=== PATIENT | male | born 1985 | race Hispanic/Latino ===

== ENCOUNTER 2022-10-14 17:52 | Emergency (ER) | payer SELFPAY ==
--- NOTE | 2022-10-14 18:25 | RAD REPORT ---
EXAM DESCRIPTION: RAD - Foot Left 3 View - 10/14/2022 6:19 pm CLINICAL HISTORY: lawnmower vs great toe, who will win? COMPARISON: No comparisons TECHNIQUE: Left foot, 3 views. FINDINGS: No fracture, dislocation or periosteal reaction. No air or foreign body in the soft tissues. Soft tissue swelling and irregularity at the tip of the f irst digit. IMPRESSION: Soft tissue swelling and irregularity of the tip of the first digit. No acute osseous ab normality.
--- NOTE | 2022-10-14 19:27 | ER ---
Nurse's Notes [facility] Name: Trevor Carpenter Age: 37 yrs Sex: Male : 1985 Arrival Date: 10/14/2022 Time: 17:52 Bed 20 Private MD: Diagnosis: Amputation Presentation: 10/14 17:55 Chief complaint: EMS states: patient was using the lawnmower, tripped and the lawnmower ko1 cut the tip ot the left big toe off. Coronavirus screen: At this time, the client does not indicate any symptoms associated with coronavirus-19. Ebola Screen: No symptoms or risks identified at this time. Initial Sepsis Screen: Does the patient meet any 2 criteria? No. Patient's initial sepsis screen is negative. Does the patient have a suspected source of infection? No. Patient's initial sepsis screen is negative. Risk Assessment: Do you want to hurt yourself or someone else? Patient reports no desire to harm self or others. Onset of symptoms was October 14, 2022 at 17:30. Care prior to arrival: Bleeding of injury controlled. Injury dressed. IV initiated. 20 GA, in the left forearm, Glucose check: 138. 17:55 Method Of Arrival: EMS: [facility] ko1 17:55 Acuity: JANET 2 ko1 Triage Assessment: 18:04 General: Appears in no apparent distress. uncomfortable, Behavior is cooperative, ko1 appropriate for age. Pain: Complains of pain in plantar aspect of left first toe and medial aspect of left toes. Historical: - Allergies: 18:04 Unable to obtain; ko1 - Home Meds: 18:04 None [Active]; ko1 - Immunization history:: Adult Immunizations unknown, Last tetanus immunization: 2018. - Social history:: Smoking status: Patient denies any tobacco usage or history of. Screenin:07 [facility] ED Fall Risk Assessment (Adult) History of falling in the last 3 months, ko1 including since admission No falls in past 3 months (0 pts) Confusion or Disorientation No (0 pts) Intoxicated or Sedated No (0 pts) Impaired Gait No (0 pts) Mobility Assist Device Used No (0 pt) Altered Elimination No (0 pt) Score/Fall Risk Level 0 - 2 = Low Risk Oriented to surroundings, Maintained a safe environment, Educated pt \T\ family on fall prevention, incl call for assistance when getting out of bed, Assessed \T\ reinforced patient's understanding of fall precautions, Provided non-skid footwear, Hourly rounding (assess needs \T\ fall precautionary measures) done, Used ambulatory aids as needed (educated on \T\ assisted with), Used gait belt as appropriate. Abuse screen: Denies threats or abuse. Denies injuries from another. Nutritional screening: No deficits noted. Tuberculosis screening: No symptoms or risk factors identified. Assessment: 18:07 General: Appears in no apparent distress. uncomfortable, Behavior is cooperative, ko1 appropriate for age. Pain: Complains of pain in left foot and medial aspect of left toes and plantar aspect of left first toe. Neuro: No deficits noted. Cardiovascular: No deficits noted. Respiratory: No deficits noted. GI: No deficits noted. : No deficits noted. EENT: No deficits noted. Derm: No deficits noted. Musculoskeletal: Amputation of. Injury Description: Amputation sustained to distal end of left great toe. 18:53 Reassessment: dressing placed on left great toe. ko1 19:10 General: Appears comfortable, Behavior is cooperative, anxious. Pain: Complains of pain ha1 in left foot. Neuro: Level of Consciousness is awake, alert, obeys commands, Oriented to person, place, time, situation. Cardiovascular: Patient's skin is warm and dry. Respiratory: Airway is patent Respiratory effort is even, unlabored, Respiratory pattern is regular, symmetrical. Injury Description: Amputation sustained to plantar aspect of left first toe is partial. 19:30 Reassessment: screaming on the hallway insulting care provider. Gallardo code was called. ha1 security arrived. Vital Signs: 18:00 BP 153 / 92; Pulse 85; Resp 18; Temp 98; Pulse Ox 98% on R/A; ko1 19:40 BP 145 / 90; Pulse 85; Resp 18 S; Pulse Ox 98% on R/A; ha1 ED Course: 17:55 Patient arrived in ED. ko1 17:57 Jose A Moffett PA is PHCP. [facility] 17:57 Ángel Whipple MD is Attending Physician. [facility] 17:58 Juliane Garduno, SHERIN is Primary Nurse. ko1 18:04 Triage completed. ko1 18:04 Arm band placed on right wrist. Patient placed in an exam room, on a stretcher, on ko1 surveillance monitor, on pulse oximetry, Patient notified of wait time. 18:07 Patient has correct armband on for positive identification. Bed in low position. Call ko1 light in reach. Side rails up X 1. Pulse ox on. NIBP on. Door closed. Noise minimized. Lights dimmed. 18:07 when patient moved to stretcher from EMS stretcher. ko1 18:21 Foot Left 3 View XRAY In Process Unspecified. EDMS 18:53 No provider procedures requiring assistance completed. ko1 19:26 oTny Simpson MD is Referral Physician. [facility] Administered Medications: 18:27 Not Given (patient says he had one <5yrs agoo): Tetanus-Diphtheria Toxoid IM Adult 0.5 ko1 ml IM once; Provide Vaccine Information Statement (VIS). Medication: 19:41 VIS not applicable for this client. ha1 Outcome: 19:27 Discharge ordered by MD. [facility] 19:41 Discharged to home ambulatory. ha1 19:41 Condition: stable 19:41 Discharge instructions given to patient, Instructed on discharge instructions, follow up and referral plans. medication usage, Demonstrated understanding of instructions, follow-up care, medications, wound care, Prescriptions given X 2. 19:41 Patient left the ED. ha1 Signatures: Dispatcher [employer] EDMS Jose A Moffett PA PA jmm Ayala, Heidy, RN RN ha1 Juliane Garduno, RN RN ko1
--- NOTE | 2022-10-14 19:27 | EDPHYS ---
Physician Documentation [facility] Name: Trevor Carpenter Age: 37 yrs Sex: Male : 1985 Arrival Date: 10/14/2022 Time: 17:52 Bed 20 Private MD: ED Physician Ángel Whipple HPI: 10/14 17:57 This 37 yrs old Male presents to ER via EMS with complaints of Foot pain. [facility] 17:57 Onset: The symptoms/episode began/occurred acutely, just prior to arrival. Is a jmm 37-year-old male with a history of chronic back pain the presents emerged department with complaints of left great toe pain which occurred after a lawn more ran over his toe. Denies other injury.. Historical: - Allergies: 18:04 Unable to obtain; ko1 - Home Meds: 18:04 None [Active]; ko1 - Immunization history:: Adult Immunizations unknown, Last tetanus immunization: 2018. - Social history:: Smoking status: Patient denies any tobacco usage or history of. ROS: 17:57 Constitutional: Negative for fever, chills, and weight loss, Cardiovascular: Negative jmm for chest pain, palpitations, and edema, Respiratory: Negative for shortness of breath, cough, wheezing, and pleuritic chest pain. 17:57 MS/extremity: Positive for injury or acute deformity. 17:57 All other systems are negative. Exam: 17:57 Constitutional: This is a well developed, well nourished patient who is awake, alert, jmm and in no acute distress. Head/Face: atraumatic. Eyes: EOMI, no conjunctival erythema appreciated ENT: Moist Mucus Membranes Neck: Trachea midline, Supple Chest/axilla: Normal chest wall appearance and motion. Cardiovascular: Regular rate and rhythm. No edema appreciated Respiratory: Normal respirations, no respiratory distress appreciated Abdomen/GI: Non distended Back: Normal ROM 17:57 Musculoskeletal/extremity: Partial amputation of the left great toe appreciated, less than 2-second distal cap refill. 17:57 Skin: Appearance: Color: normal in color. 17:57 Neuro: Motor: is normal. 17:57 Psych: Behavior/mood is pleasant, cooperative. Vital Signs: 18:00 BP 153 / 92; Pulse 85; Resp 18; Temp 98; Pulse Ox 98% on R/A; ko1 19:40 BP 145 / 90; Pulse 85; Resp 18 S; Pulse Ox 98% on R/A; ha1 MDM: 17:57 Patient medically screened. [facility] 21:45 Differential diagnosis: Toe amputation, fracture. Data reviewed: vital signs, nurses [facility] notes, radiologic studies, plain films. Management of patient was discussed with the following: Lime Hide Inspector: Dr. Simpson. I considered the following discharge prescriptions or medication management in the emergency department Medications were administered in the Emergency Department. See MAR. Independent interpretation of the following test(s) in the Emergency Department X-Ray: My interpretation is No fracture appreciated. Counseling: I had a detailed discussion with the patient and/or guardian regarding: the historical points, exam findings, and any diagnostic results supporting the discharge/admit diagnosis, radiology results, the need for outpatient follow up, to return to the emergency department if symptoms worsen or persist or if there are any questions or concerns that arise at home. ED course: Left great toe was cleaned. Surgicel was applied. Bleeding stopped. Wound was reevaluated by general surgery who will follow-up with the patient in clinic.. 10/14 17:58 Order name: Foot Left 3 View XRAY; Complete Time: 18:26 [facility] Administered Medications: 18:27 Not Given (patient says he had one <5yrs agoo): Tetanus-Diphtheria Toxoid IM Adult 0.5 ko1 ml IM once; Provide Vaccine Information Statement (VIS). Disposition Summary: 10/14/22 19:27 Discharge Ordered Location: Home [facility] Condition: Stable [facility] Diagnosis - Amputation [facility] Followup: [facility] - With: Private Physician - When: 2 - 3 days - Reason: Recheck today's complaints, Continuance of care, Re-evaluation by your physician Followup: [facility] - With: Tony Simpson MD - When: 2 - 3 days - Reason: Recheck today's complaints, Continuance of care, Re-evaluation by your physician Discharge Instructions: - Discharge Summary Sheet [facility] - Toe Amputation, Care After [facility] Forms: - Medication Reconciliation Form [facility] - Thank You Letter [facility] - Antibiotic Education [facility] - Prescription Opioid Use [facility] Prescriptions: - acetaminophen-codeine 300-30 mg Oral tablet - take 1 tablet by ORAL route every 6 hours As needed; 30 tablet; Refills: 0, [facility] Product Selection Permitted - doxycycline monohydrate 25 mg/5 mL Oral Suspension for Reconstitution - take 20 milliliter by ORAL route once for 10 days; 400 milliliter; Refills: 0, [facility] Product Selection Permitted Signatures: [facility] Jose A Portillo PA PA jmm Oliver, Kathy, RN RN ko1
[2022-10-14 19:47] VITALS: TEMP 98; O2SAT 98
[2022-10-14 19:49] VITALS: BP 145/90
== END 2022-10-14 19:41 | disposition home or self-care (01) ==
LOC: ER 17:52
DX: S98.122A Partial traumatic amputation of left great toe, initial encounter (principal)